=== PATIENT | female | born 1970 | race Caucasian/White ===

== ENCOUNTER 2017-07-27 13:00 | Emergency (ER) | payer OTHER ==
[2017-07-27 13:05] VITALS: BP 113/70; PULSE 61; TEMP 98.1; BMI 25.0
[2017-07-27] MEDS ORDERED: ACETAMINOPHEN 500 MG TABLET (FP) PO ONE (13:05)
[2017-07-27] MEDS ORDERED: ACETAMINOPHEN 500 MG TABLET (FP) ONE (13:10)
--- NOTE | 2017-07-27 13:11 | PDOC ---
History of Present Illness - General Chief Complaint: Injury Stated Complaint: LEFT ELBOW INJURY Time Seen by Provider: 07/27/17 13:05 - History of Present Illness Initial Comments: Previously healthy 47 year old female presenting a few hours s/p fall onto her left elbow. States she tripped down a few stairs and landed on her flexed elbow afterward she noticed some tenderness around the area of impact. She was able to get up and move the joint but had some tenderness with complete flexion and complete extension of the joint as well as tenderness to palpation of the area of exact impact. Denies bleeding, LOC, head trauma, chest pain, SOB, nausea, vomiting, dizziness, or other sick symptoms. 07/27/17 13:05 Past History - Past Medical History Allergies/Adverse Reactions: Allergies Allergy/AdvReac Type Severity Reaction Status Date / Time No Known Allergies Allergy Verified 07/27/17 13:00 Home Medications: Ambulatory Orders Naproxen Sodium [Aleve] 220 mg PO QID PRN #30 tablet 07/27/17 - Suicide/Smoking/Psychosocial Hx Smoking History: Current some day smoker Have you smoked in the past 12 months: Yes 'Breaking Loose' booklet given: 11/10/14 Hx Alcohol Use: Yes (OCCAS. [place] [employer] [place] [employer]) Substance Use Type: None Review of Systems - Review of Systems Constitutional: No: Chills, Diaphoresis, Fever HEENTM: No: Blurred Vision, Recent change in vision Respiratory: No: Cough, Orthopnea, Shortness of Breath Cardiac (ROS): No: Chest Pain, Irregular Heart Rate ABD/GI: No: Constipated, Diarrhea, Nausea, Poor Appetite, Vomiting : No: Burning, Dysuria, Discharge, Hematuria Musculoskeletal: No: Back Pain, Joint Swelling, Muscle Pain, Muscle Weakness Integumentary: Yes: Bruising, Erythema Neurological: No: Headache, Numbness, Paresthesia, Tremors, Weakness Psychiatric: No: Anxiety, Depression *Physical Exam - Physical Exam General Appearance: Yes: Nourished, Appropriately Dressed. No: Apparent Distress HEENT: positive: EOMI, AMANUEL, Normal ENT Inspection, Normal Voice Neck: positive: Trachea midline, Normal Thyroid, Supple. negative: Tender, Rigid Respiratory/Chest: positive: Lungs Clear, Normal Breath Sounds. negative: Chest Tender, Respiratory Distress, Accessory Muscle Use Cardiovascular: positive: Regular Rhythm, Regular Rate Gastrointestinal/Abdominal: positive: Normal Bowel Sounds, Flat, Soft. negative : Tender Musculoskeletal: positive: Decreased Range of Motion, Other. negative: Normal Inspection (Tenderness to palpation over an area of bruising on the posterior lateral aspect of the left ulna directly inferior to the olecranon process. Slight pain but no limitation at complete flexion and compelte extension (worse with active ROM). No obvious bony deformity or stepoff.) Medical Decision Making - Medical Decision Making 47 year old healthy female with low mechanism of trauma to elbow with light echymoses and pain with complete ROM. Elbow XRs not demonstrating a fracture so patient will be discharged with ice and OTC medication use instructions as well as return precautions. 07/27/17 13:14 *DC/Admit/Observation/Transfer Diagnosis at time of Disposition: Elbow deformity Qualifiers: Laterality: left Qualified Code(s): M21.922 - Unspecified acquired deformity of left upper arm - Discharge Dispostion Disposition: HOME Condition at time of disposition: Improved - Prescriptions Prescriptions: Naproxen Sodium [Aleve] 220 mg PO QID PRN #30 tablet PRN Reason: Pain - Referrals Referrals: Karen Morales MD [Primary Care Provider] - - Patient Instructions Printed Discharge Instructions: DI for Contusion, How to Use a Sling Additional Instructions: You do not have a fracture of your elbow. You bruised the soft tissues and the superficial surface of the bone. Please use the arm sling for comfort, ice, Tylenol, and naproxen as needed. Please avoid further trauma to the area. Please return if the pain does not improve with these measures or you notice worsening pain or loss of function. - Post Discharge Activity Forms/Work/School Notes: Back to Work
--- NOTE | 2017-07-27 14:43 | PDOC ---
Attending Attestation - Resident Resident Name: Malcom Gray - ED Attending Attestation I have performed the following: I have examined & evaluated the patient, The case was reviewed & discussed with the resident, I agree w/resident's findings & plan, Exceptions are as noted
== END 2017-07-27 14:30 | disposition home or self-care (01) ==
LOC: FER 13:00
DX: M21.922 Unspecified acquired deformity of left upper arm (principal); F17.210 Nicotine dependence, cigarettes, uncomplicated; W18.39XA Other fall on same level, initial encounter; Y93.89 Activity, other specified; Y92.9 Unspecified place or not applicable
CPT/HCPCS: 73070-TC-LT-FY; 84703; 99283-25